=== PATIENT | male | born 1955 | race Caucasian/White ===

== ENCOUNTER → 2016-06-10 | Outpatient (CLI) | payer BC | END | disposition home or self-care (01) | LOC: RADPV 12:42 | PROVIDERS: ATTEND Family Medicine | DX: M19.011 Primary osteoarthritis, right shoulder (principal) | CPT/HCPCS: 93971 ==

== ENCOUNTER → 2017-09-21 | Emergency (ER) | payer BC ==
[~2017-09-21] VITALS: Ht 172.7 cm; Wt 87.0 kg
[~2017-09-21] MED LIST: ACETAMINOPHEN/CODEINE 300-30 MG TABLET PO ONE; AMLO-511 PO; ATOR20TA86 PO; DIPHENOXYLATE/ATROP 2.5-0.025 MG TABLET PO ONE; FURO40 PO; INSNOV SQ; INSU100I24 SQ; LACT30L PO; LISI-662 PO; METO50 PO; PHOSLOC PO; SEVEC800 PO; TAMS0.4C32 PO; ZOLP5 PO
[2017-09-21 14:43] LABS: BASOPHILS % (AUTO) 0.6 % (0.0-2.0); EOSINOPHILS % (AUTO) 2.5 % (1.0-6.0); HEMATOCRIT 39.7 % (41-53); HEMOGLOBIN 13.2 g/dL (13.5-17.5); LYMPHOCYTES # (AUTO) 2.9 K/uL (1.0-4.8); LYMPHOCYTES % (AUTO) 27.7 % (22.0-44.0); MEAN CORPUSCULAR HEMOGLOBIN 32.8 pg (26.0-34.0); MEAN CORPUSCULAR HGB CONC 33.3 G/dL (31.0-37.0); MEAN CORPUSCULAR VOLUME 98 fL (80-100); MONOCYTES # (AUTO) 0.8 K/uL (0.1-1.0); MONOCYTES % (AUTO) 7.3 % (2.0-9.0); NEUTROPHILS # (AUTO) 6.4 K/uL (1.8-7.7); NEUTROPHILS % (AUTO) 61.9 % (40.0-70.0); PLATELET COUNT (AUTO) 212 K/uL (150-450); RED BLOOD CELL COUNT(AUTO) 4.03 MIL/uL (4.50-5.90); RED CELL DISTRIBUTION WIDTH 18.4 % (11.5-14.5)
[2017-09-21 14:47] LABS: CALCIUM, TOTAL 8.4 mg/dL (8.8-10.5); CREATININE 12.28 mg/dL (0.60-1.30); POTASSIUM 4.9 mmol/L (3.5-5.1)
[2017-09-21 14:53] LABS: ALBUMIN 3.5 g/dL (3.4-5.0); BILIRUBIN,TOTAL 0.3 mg/dL (0.1-1.0); TOTAL PROTEIN, SERUM 7.9 g/dL (6.4-8.2)
[2017-09-21 15:35] VITALS: BP 136/64
[2017-09-21 16:25] LABS: C.DIFF GDH ANTIGEN, Stool Negative (Negative); C.DIFF TOXINS A&B, Stool Negative (Negative)
== END | disposition home or self-care (01) ==
LOC: EMS 14:05
DX: K52.9 Noninfective gastroenteritis and colitis, unspecified (principal); I12.0 Hypertensive chronic kidney disease with stage 5 chronic kidney disease or end stage renal disease; E11.22 Type 2 diabetes mellitus with diabetic chronic kidney disease; N18.6 End stage renal disease; E78.00 Pure hypercholesterolemia, unspecified; Z99.2 Dependence on renal dialysis; Z85.038 Personal history of other malignant neoplasm of large intestine; Z86.010 Personal history of colon polyps; Z90.49 Acquired absence of other specified parts of digestive tract; Z79.4 Long term (current) use of insulin; Z79.899 Other long term (current) drug therapy
CPT/HCPCS: 87045; 87324; 87427; 87449; 99284

== ENCOUNTER → 2019-07-26 | Outpatient (CLI) | payer MEDICARE, OTHER ==
[~2019-07-26] MED LIST changes: -ACETAMINOPHEN/CODEINE 300-30 MG TABLET PO ONE; -AMLO-511 PO; +AMLO5TAB9 PO; -DIPHENOXYLATE/ATROP 2.5-0.025 MG TABLET PO ONE; +SEVE800T17 PO; -SEVEC800 PO; +TAMS-13 PO; -TAMS0.4C32 PO; +ZOLP-280 PO; -ZOLP5 PO
== END | disposition home or self-care (01) ==
LOC: RADPV 08:34
PROVIDERS: ATTEND Podiatrist Foot & Ankle Surgery
DX: S82.402A Unspecified fracture of shaft of left fibula, initial encounter for closed fracture (principal); S82.52XA Displaced fracture of medial malleolus of left tibia, initial encounter for closed fracture; S93.02XA Subluxation of left ankle joint, initial encounter; M25.572 Pain in left ankle and joints of left foot; M85.672 Other cyst of bone, left ankle and foot; M19.072 Primary osteoarthritis, left ankle and foot; M20.12 Hallux valgus (acquired), left foot; M21.42 Flat foot [pes planus] (acquired), left foot; M25.872 Other specified joint disorders, left ankle and foot; W19.XXXA Unspecified fall, initial encounter; Y93.89 Activity, other specified; Y92.89 Other specified places as the place of occurrence of the external cause; Y99.8 Other external cause status